=== PATIENT | female | born 1970 | race Caucasian/White ===

== ENCOUNTER → 2016-04-23 | Outpatient (CLI) | payer OTHER ==
--- NOTE | 2016-04-23 13:44 | DX ---
DEXA Bone Mineral Densitometry Clinical Indications: 46-year-old female with menopause at age 46 due to chemotherapy for breast can cer, letrozole therapy Comparison: None Technique: Bone Mineral Densitometry (BMD) by Dual Energy X-Ray Absorptiometry (DEXA) was performed utilizing the [email or web address] scanner. The lumbar spine was evaluated in the AP projection. The bilat eral hips and forearm were evaluated in the AP projection. Vertebral fracture assessment was also pe rformed. AP Lumbar Spine: The L1, L2, L3 and L4 vertebral bodies were evaluated. BMD: 0.994 gm/cm2 T-score: -1.6 SD Z-score: -1.2 SD AP Left Hip: Total BMD: 0.780 gm/cm2 T-score: -1.8 SD Z-score: -1.2 SD AP Right Hip: Total BMD: 0.779 gm/cm2 T-score: -1.8 SD Z-score: -1.2 SD AP Left Forearm, 03/25: BMD: 0.755 gm/cm2 T-score: -1.4 SD Z-score: - 1.4 SD Vertebral Fracture Assessment: No significant fracture deformity. No prevertebral aortic calcificati on, significant marginal bone spurring, facet arthrosis, or intrinsic vertebral body sclerosis that would effect the accuracy of the lumbar spine BMD measurement. Conclusion: Considering the lowest measured site, the patient has low bone density. The ten year FRAX risk for any major osteoporotic fracture is 2.8% and for a hip fracture is 0.4%. Any bone loss in this patient is probably related to genetic mallorie or estrogen blockade/deficiency. To prevent osteoporosis and to promote the patient's bone density, the following recommendations shou ld be considered: 1. Pursue a regular regimen of weightbearing and muscle strengthening exercises in order to reduce t he risk of falls and fractures (as tolerated by the patient's general medical condition). 2. Ensure that daily dietary calcium uptake is maximized. 3. Consider checking the serum vitamin D level. Ensure that intake of vitamin D is 600 IU per day (fo r all ages through 70) . 4. Consider follow-up DEXA scan in two years to assess the rate of bone loss in this patient.
== END ==
LOC: FIMAGING 08:50
PROVIDERS: ATTEND Internal Medicine Hematology & Oncology
DX: Z13.820 Encounter for screening for osteoporosis (principal); M85.80 Other specified disorders of bone density and structure, unspecified site; Z78.0 Asymptomatic menopausal state; Z85.3 Personal history of malignant neoplasm of breast

== ENCOUNTER 2016-11-04 09:17 | Emergency (ER) | payer OTHER ==
[2016-11-04 09:23] VITALS: O2SAT 99
[2016-11-04] MEDS ORDERED: ONDANSETRON 4 MG/2 ML VIAL ONE (09:39)
[2016-11-04] MEDS ORDERED: ONDANSETRON DISINTEGRATING 4 MG TAB ONE (09:43)
[2016-11-04] MEDS ORDERED: ONDANSETRON DISINTEGRATING 4 MG TAB PO ONE (09:43)
--- NOTE | 2016-11-04 09:46 | EDPHY ---
H & P Stated Complaint: indigestion/nausea and lower back pain Time Seen by Provider: 11/04/16 09:34 HPI/ROS: CHIEF COMPLAINT: Low back pain HISTORY OF PRESENT ILLNESS: The patient is a 46-year-old female with a recent history of breast cancer who is currently in remission who comes to the emergency department complaining of low back pain that began yesterday and is gradually increased over the day today. No fevers. No paresthesias or weakness. No trouble walking. She is concerned about a kidney stone because she is taking calcium because she had a poor DEXA scan. She was warned by Dr. Rubio to watch for kidney stones. The pain does not radiate to her flank or abdomen. She feels slightly nauseous but has not vomited. She is very anxious. She has not had a fever. No bowel or bladder abnormalities. She did not have any known metastases from breast cancer. She states that she does exercise avidly and do yoga and occasionally has pain in this back after yoga. REVIEW OF SYSTEMS: Constitutional: denies: chills, fever, recent illness, recent injury EENTM: denies: blurred vision, double vision, nose congestion Respiratory: denies: cough, shortness of breath Cardiac: denies: chest pain, irregular heart rate, lightheadedness, palpitations Gastrointestinal/Abdominal: denies: abdominal pain, diarrhea, nausea, vomiting, blood streaked stools Genitourinary: denies: dysuria, frequency, hematuria, pain Musculoskeletal see HPI Skin: denies: lesions, rash, jaundice, bruising Neurological: denies: headache, numbness, paresthesia, tingling, dizziness, weakness Hematologic/Lymphatic: denies: blood clots, easy bleeding, easy bruising Immunologic/allergic: denies: HIV/AIDS, transplant EXAM: GENERAL: Well-appearing, anxious HEAD: Atraumatic, normocephalic. EYES: Pupils equal round and reactive to light, extraocular movements intact, sclera anicteric, conjunctiva are normal. ENT: TMs normal, nares patent, oropharynx clear without exudates. Moist mucous membranes. NECK: Normal range of motion, supple without lymphadenopathy or JVD. LUNGS: Breath sounds clear to auscultation bilaterally and equal. No wheezes rales or rhonchi. HEART: Regular rate and rhythm without murmurs, rubs or gallops. ABDOMEN: Soft, nontender, normoactive bowel sounds. No guarding, no rebound. No masses appreciated. BACK: No CVA tenderness, no spinal tenderness, step-offs or deformities EXTREMITIES: Normal range of motion, no pitting or edema. No clubbing or cyanosis. NEUROLOGICAL: Cranial nerves II through XII grossly intact. Normal speech, normal gait. 5/5 strength, normal movement in all extremities, normal sensation PSYCH: Normal mood, normal affect. SKIN: Warm, dry, normal turgor, no visible rashes or lesions. Source: Patient Exam Limitations: No limitations - Personal History LMP (Females 10-55): Post Menopausal Current Tetanus/Diphtheria Vaccine: Unsure - Medical/Surgical History Hx Asthma: No Hx Chronic Respiratory Disease: No Hx Diabetes: No Hx Cardiac Disease: No Hx Renal Disease: No Hx Cirrhosis: No Hx Alcoholism: No Hx HIV/AIDS: No Hx Splenectomy or Spleen Trauma: No Other PMH: breast CA - Family History Significant Family History: No pertinent family hx - Social History Smoking Status: Never smoked Alcohol Use: Sober Drug Use: None Constitutional: Initial Vital Signs Temperature (C) 36.7 C 11/04/16 09:20 Heart Rate 65 11/04/16 09:20 Respiratory Rate 20 11/04/16 09:20 Blood Pressure 124/93 H 11/04/16 09:20 O2 Sat (%) 99 11/04/16 09:20 O2 Delivery Mode Room Air Allergies/Adverse Reactions: No Known Allergies Allergy (Verified 11/04/16 09:19) Home Medications: Medication Instructions Recorded Cholecalciferol (Vitamin D3) 5,000 unit PO DAILY 01/01/16 [Vitamin D3] Herbals/Supplements -Info Only 1 ea PO DAILY 01/01/16 Melatonin 20 mg PO HS 01/01/16 [place]-3 Fatty Acids [Fish Oil 1000 1,000 mg PO DAILY 01/01/16 mg (*)] Vitamin B Complex [B Complex] 1 tab PO DAILY 01/01/16 metFORMIN HCL [Metformin HCl ER] 1,000 mg PO HS 01/01/16 Letrozole 11/04/16 Medical Decision Making - Diagnostics Imaging Results: Imaging Impressions Abdomen/Pelvis CT 11/04/16 09:43 Impression: 1. Two hepatic lesions with a differential diagnosis of metastases versus hemangiomata. Recommend CT abdomen or MRI abdomen without and with contrast enhancement, multiphase imaging. 2. No cholelithiasis or biliary ductal dilation. 3. Constipation. Attention: This CT examination is specifically designed to evaluate patients who are clinically suspected of having acute obstructive uropathy. This examination does not use radiographic contrast, and as such, provides only a limited evaluation of the abdomen, pelvis and retroperitoneum. If there is further clinical suspicion for pathological conditions other than obstructive uropathy, a complete CT evaluation of the abdomen and pelvis utilizing intravenous, oral, and rectal contrast should be considered Findings and recommendations discussed with Emergency Department physician, Diego Lee, at 1030 hours on November 05, 2016. Final report concurs with initial preliminary interpretation.. e:[facility] [place] ED Course/Re-evaluation: 10:50 a.[address]. we discussed the CT results. The patient is greatly relieved. She was already aware of the lesions in her liver. She states that they have been ultrasound an MRI several times. She will follow up with Dr. Rubio. Otherwise she is eager to go home states that she feels better. She took ibuprofen prior to coming. She thinks that this is likely musculoskeletal. She also states that she did not blue for 2 days because of a road trip. I encouraged MiraLax and anti-inflammatories. We discussed indications for returning. Differential Diagnosis: Partial list of the Differential diagnosis considered include but were not limited to; muscle strain, kidney stone, and although unlikely based on the history and physical exam, I also considered urinary tract infection, metastasis. I discussed these differential diagnoses and the plan with the patient as well as the usual and expected course. The patient understands that the diagnosis is provisional and that in medicine we are not always correct and that further workup is often warranted. Usual and customary warnings were given. All of the patient's questions were answered. The patient was instructed to return to the emergency department should the symptoms at all worsen or return, otherwise to followup with the physician as we discussed. - Data Points Laboratory Results: 11/04/16 09:30 Urine Color PALE YELLOW Urine Appearance CLEAR Urine pH 7.0 (5.0-7.5) Ur Specific [place] 1.001 L (1.002-1.030) Urine Protein NEGATIVE (NEGATIVE) Urine Ketones NEGATIVE (NEGATIVE) Urine Blood NEGATIVE (NEGATIVE) Urine Nitrate NEGATIVE (NEGATIVE) Urine Bilirubin NEGATIVE (NEGATIVE) Urine Urobilinogen NEGATIVE EU EU (0.2-1.0) Ur Leukocyte Esterase NEGATIVE (NEGATIVE) Urine RBC 1-3 /hpf /hpf (0-3) Urine WBC 1-3 /hpf /hpf (0-3) Ur Epithelial Cells NONE SEEN /lpf /lpf (NONE-1+) Urine Glucose NEGATIVE (NEGATIVE) Medications Given: Discontinued Medications Ondansetron HCl (Zofran Odt) 4 mg PO EDNOW ONE Stop: 11/04/16 09:44 Last Admin: 11/04/16 10:11 Dose: 4 mg Departure - Departure Disposition: Home, Routine, Self-Care Clinical Impression: Back pain Qualifiers: Back pain location: low back pain Chronicity: acute Back pain laterality: midline Sciatica presence: without sciatica Qualified Code(s): M54.5 - Low back pain Constipation Qualifiers: Constipation type: unspecified constipation type Qualified Code(s): K59.00 - Constipation, unspecified Condition: Fair Instructions: Constipation (ED), Back Pain (ED) Referrals: Nerissa Davis MD [Primary Care Provider] - As per Instructions
[2016-11-04 09:52] LABS: COLOR PALE YELLOW; LEUKOCYTE ESTERASE,URINE NEGATIVE (NEGATIVE); NITRITE,URINE NEGATIVE (NEGATIVE)
[2016-11-04 11:22] VITALS: BP 124/65; PULSE 69; RESP 16; TEMP 98.8
== END 2016-11-04 11:00 | disposition home or self-care (01) ==
DX: K59.00 Constipation, unspecified (principal); Z85.3 Personal history of malignant neoplasm of breast
CPT/HCPCS: J2405

== ENCOUNTER → 2017-04-30 | Outpatient (CLI) | payer OTHER | LOC: FIMAGING 09:45 | PROVIDERS: ATTEND Internal Medicine Hematology & Oncology | DX: Z13.820 Encounter for screening for osteoporosis (principal); M81.0 Age-related osteoporosis without current pathological fracture; C50.111 Malignant neoplasm of central portion of right female breast ==